=== PATIENT | female | born 1940 | race African-American/Black ===

== ENCOUNTER 2018-07-26 20:31 | Emergency (ER) | payer MEDICARE, MEDICAID ==
[~2018-07-26] VITALS: Ht 160 cm; Wt 73.0 kg
[~2018-07-26 20:31] MED LIST: ATOR10TA; LISI2.5T47; OMEP10CA4; PROM12.511
[2018-07-26 20:36] VITALS: BP 184/68
== END 2018-07-27 00:05 | disposition left against medical advice (07) ==
LOC: ER 20:31
DX: Z53.21 Procedure and treatment not carried out due to patient leaving prior to being seen by health care provider (principal); E11.9 Type 2 diabetes mellitus without complications; I10 Essential (primary) hypertension; E78.00 Pure hypercholesterolemia, unspecified; Z85.9 Personal history of malignant neoplasm, unspecified
CPT/HCPCS: 82962

== ENCOUNTER 2020-10-08 11:44 | Inpatient (IN) | payer MEDICARE, MEDICAID ==
[~2020-10-08] VITALS: Ht 160 cm; Wt 84.8 kg
[~2020-10-08 11:44] MED LIST changes: -OMEP10CA4; +OMEP10CA5; -PROM12.511; +PROM12.513
[2020-10-08] MEDS ORDERED: SODIUM CHLORIDE 0.9% 1,000 ML IV ONE (13:30)
[2020-10-08 14:13] LABS: BASOPHILS % 0.7 % (0.0-2.0); EOSINOPHILS % 1.3 % (0.0-5.0); HEMATOCRIT. 41.3 % (36.0-48.0); HEMOGLOBIN. 14.4 g/dL (12.0-16.0); LYMPHOCYTES % 34.1 % (20.0-50.0); MEAN CORPUSCULAR HEMOGLOBIN 31.4 pg (28.0-32.0); MEAN CORPUSCULAR VOLUME 90.1 fL (81.0-99.0); MEAN PLATELET VOLUME 10.1 fl (7.4-10.4); MONOCYTES % 13.2 % (2.0-8.0); NEUTROPHILS % 50.7 % (40.0-76.0); PLATELET 291 x1000/uL (130-400); RED BLOOD CELL COUNT 4.59 mill/uL (4.2-5.4); RED CELL DISTRIBUTION WIDTH 12.4 % (11.6-14.6)
[2020-10-08 14:17] LABS: CLARITY URINE CLEAR (CLEAR); COLOR URINE YELLOW (YELLOW); KETONES URINE 3+ (NEGATIVE); LEUKOCYTE ESTERASE URINE NEGATIVE (NEGATIVE); NITRITE URINE NEGATIVE (NEGATIVE); OCCULT BLOOD URINE NEGATIVE (NEGATIVE); PROTEIN URINE NEGATIVE (NEGATIVE); SPECIFIC GRAVITY URINE 1.023 (1.005-1.030); UROBILINOGEN URINE 0.2 E.U./dL (0.2-1.0)
[2020-10-08 14:18] LABS: CHLORIDE 84 mEq/L (98-107)
[2020-10-08 14:24] LABS: BETA HYDROXYBUTYRATE 5.2 mMol/L (0.0-0.3)
[2020-10-08] MEDS ORDERED: DEXTROSE 50% WATER 50ML SYRINGE IV PRN (17:30)
[2020-10-08] MEDS ORDERED: DIPHENHYDRAMINE 50MG/ML VIAL IV PRN (17:30)
[2020-10-08] MEDS ORDERED: CLONIDINE 0.1MG TABLET PO PRN (17:30)
[2020-10-08] MEDS ORDERED: ONDANSETRON HCL 4MG/2ML INJ IV PRN (17:30)
[2020-10-08] MEDS ORDERED: ACETAMINOPHEN 325MG TABLET PO PRN ×2 (17:30)
[2020-10-08] MEDS: INSULIN LISPRO 100 UNITS/ML SUBCUT SCH ×2 (18:53→22:09)
[2020-10-08 19:30] VITALS: BP 108/47
[2020-10-08 20:00] VITALS: BP 98/75
[2020-10-08] MEDS: BLOOD SUGAR DIAGNOSTIC STRIP TEST SCH (21:06)
[2020-10-08] MEDS ORDERED: INSULIN GLARGINE UD 100 UNITS/ML SYR SUBCUT SCH (22:00)
[2020-10-08] MEDS: SODIUM CHLORIDE 0.9% 1,000 ML IV SCH (22:02)
[2020-10-08] MEDS: ENOXAPARIN 40MG/0.4ML SYR SUBCUT SCH (22:02)
[2020-10-08] MEDS: INSULIN GLARGINE UD 100 UNITS/ML SYR SUBCUT SCH (23:54)
[2020-10-09] VITALS: BP 107/51
[2020-10-09 04:00] VITALS: BP 125/68
[2020-10-09 05:44] LABS: HEMATOCRIT. 34.7 % (36.0-48.0); HEMOGLOBIN. 12.1 g/dL (12.0-16.0); MEAN CORPUSCULAR HEMOGLOBIN 30.8 pg (28.0-32.0); MEAN CORPUSCULAR VOLUME 88.3 fL (81.0-99.0); MEAN PLATELET VOLUME 10.1 fl (7.4-10.4); PLATELET 254 x1000/uL (130-400); RED BLOOD CELL COUNT 3.93 mill/uL (4.2-5.4); RED CELL DISTRIBUTION WIDTH 12.7 % (11.6-14.6)
[2020-10-09 06:00] LABS: CHLORIDE 95 mEq/L (98-107)
[2020-10-09] MEDS: SODIUM CHLORIDE 0.9% 1,000 ML IV SCH ×2 (06:39→13:11)
[2020-10-09] MEDS: BLOOD SUGAR DIAGNOSTIC STRIP TEST SCH ×4 (06:48→20:49)
[2020-10-09 08:08] VITALS: BP 105/46
[2020-10-09] MEDS: INSULIN LISPRO 100 UNITS/ML SUBCUT SCH ×4 (08:44→21:21)
[2020-10-09] MEDS: POTASSIUM CHLORIDE 20MEQ TABLET SR PO SCH ×2 (11:17→13:11)
[2020-10-09] MEDS ORDERED: MAGNESIUM 4 G PREMIX 100 ML IV NR (12:00)
[2020-10-09 12:09] VITALS: BP 101/56
[2020-10-09 15:34] LABS: PLATELET ESTIMATE NORMAL
[2020-10-09 16:12] VITALS: BP 115/48
[2020-10-09] MEDS: ENOXAPARIN 40MG/0.4ML SYR SUBCUT SCH (17:25)
[2020-10-09 20:00] VITALS: BP 120/53
[2020-10-09] MEDS: INSULIN GLARGINE UD 100 UNITS/ML SYR SUBCUT SCH (21:21)
[2020-10-10] VITALS: BP 97/45
[2020-10-10] MEDS: SODIUM CHLORIDE 0.9% 1,000 ML IV SCH ×2 (02:06→09:30)
[2020-10-10 04:00] VITALS: BP 112/50
[2020-10-10 06:07] LABS: CHLORIDE 98 mEq/L (98-107)
[2020-10-10] MEDS: BLOOD SUGAR DIAGNOSTIC STRIP TEST SCH ×2 (08:12→12:40)
[2020-10-10] MEDS: INSULIN LISPRO 100 UNITS/ML SUBCUT SCH ×2 (08:27→12:41)
[2020-10-10 09:08] VITALS: BP 111/38
[2020-10-10] MEDS ORDERED: POTASSIUM PHOS,M-BASIC-D-BASIC 15 MMOL in DEXT 5% WATER 245 ML IV SCH (10:00)
[2020-10-10 12:08] VITALS: BP 106/46
[2020-10-10 13:53] VITALS: BP 106/46
[2020-10-14] MEDS ORDERED: DOCU-138 MT (05:07)
== END 2020-10-10 15:20 | disposition home or self-care (01) | DRG 638 ==
LOC: ER 11:44 → 6WST 16:46 → ENRESERV 17:02
PROVIDERS: ADMIT Internal Medicine; ATTEND Internal Medicine
DX: E11.65 Type 2 diabetes mellitus with hyperglycemia (principal); E87.1 Hypo-osmolality and hyponatremia; E87.6 Hypokalemia; E83.42 Hypomagnesemia; E78.00 Pure hypercholesterolemia, unspecified; I10 Essential (primary) hypertension; Z88.0 Allergy status to penicillin; Z79.899 Other long term (current) drug therapy; Z87.891 Personal history of nicotine dependence; Z83.3 Family history of diabetes mellitus; Z79.4 Long term (current) use of insulin
CPT/HCPCS: 36415; 71045; 80048; 80051; 80053; 81003; 82010; 82962; 83036; 83735; 84100; 85025; 93005; 99285; J1200; J1650; J1815; J3475; J3490; J7030; J7060

== ENCOUNTER 2021-07-14 21:45 | Emergency (ER) | payer MEDICARE, MEDICAID ==
[~2021-07-14] VITALS: Ht 160 cm; Wt 64.0 kg
[~2021-07-14 21:45] MED LIST changes: +DOCU-138 MT
[2021-07-14] MEDS ORDERED: SODIUM CHLORIDE 0.9% 1,000 ML IV ONE (22:30)
[2021-07-14 23:19] LABS: BASOPHILS % 0.3 % (0.0-2.0); EOSINOPHILS % 1.1 % (0.0-5.0); HEMATOCRIT. 37.3 % (36.0-48.0); HEMOGLOBIN. 12.6 g/dL (12.0-16.0); LYMPHOCYTES % 67.7 % (20.0-50.0); MEAN CORPUSCULAR HEMOGLOBIN 30.9 pg (28.0-32.0); MEAN PLATELET VOLUME 9.8 fl (7.4-10.4); MONOCYTES % 7.8 % (2.0-8.0); NEUTROPHILS % 23.1 % (40.0-76.0); PLATELET 273 x1000/uL (130-400); RED BLOOD CELL COUNT 4.06 mill/uL (4.2-5.4); RED CELL DISTRIBUTION WIDTH 12.8 % (11.6-14.6)
[2021-07-14 23:27] LABS: CHLORIDE 97 mEq/L (98-107)
[2021-07-14 23:37] LABS: BETA HYDROXYBUTYRATE 0.1 mMol/L (0.0-0.3)
[2021-07-15] MEDS ORDERED: INSULIN LISPRO 100 UNITS/ML SUBCUT SCH (00:30)
[2021-07-15 00:58] VITALS: BP 148/57
== END 2021-07-15 00:59 | disposition home or self-care (01) ==
LOC: ER 21:45
DX: E11.65 Type 2 diabetes mellitus with hyperglycemia (principal); I10 Essential (primary) hypertension; Z85.6 Personal history of leukemia; Z88.0 Allergy status to penicillin
CPT/HCPCS: 36415; 80053; 82010; 82962; 83880; 84484; 85025; 96360; 96361; 96372; 99291; J1815; J7030